=== PATIENT | female | born 1940 | race Caucasian/White ===

== ENCOUNTER 2016-07-09 09:00 | Day surgery (SDC) | payer MEDICARE, OTHER ==
--- NOTE | ~2016-07-09 | EGD ---
EGD REPORT [facility] [address] [id number] NAME: TASNEEM SHORT : 36 STATUS : REG [facility] PAT#: [id number] AGE: 75 ADM/REG DATE : 07/09/16 MR#: [id number] REPORT SERV DATE: 07/09/16 DICTATED BY: DANIEL VAIL DATE: 07/09/16 REPORT STATUS : Draft TRANSCRIBED BY: [facility] DATE: 07/09/16 [facility] Center Patient Name: Tasneem Short Date of : 1940 Attending MD: DANIEL VAIL MD Procedure Date No Time: 07/09/2016 Procedure: Colonoscopy Indications: High risk colon cancer surveillance: Personal history of colonic polyps Referring MD: ANNETTE MEREDITH Medicines: Propofol per Anesthesia Complications: No immediate complications. Procedure: Pre-Anesthesia Assessment: - ASA Grade Assessment: III - A patient with severe systemic disease. After I obtained informed consent, the scope was passed under direct vision. Throughout the procedure, the patient's blood pressure, pulse, and oxygen saturations were monitored continuously. The CF [id number] was introduced through the anus and advanced to the cecum, identified by appendiceal orifice and ileocecal valve. The ileocecal valve and appendiceal orifice were photographed. The entire colon was examined. The colonoscopy was performed without difficulty. The patient tolerated the procedure well. The quality of the bowel preparation was good. Findings: The perianal and digital rectal examinations were normal. A sessile polyp was found in the rectum. The polyp was 6 mm in size. The polyp was removed with a hot snare. Resection and retrieval were complete. Multiple small and large-mouthed diverticula were found in the entire colon. Internal hemorrhoids were found during retroflexion and were Grade I (internal hemorrhoids that do not prolapse). The rest of the colon was normal. Impression: - One 6 mm polyp in the rectum. Resected and retrieved. - Diverticulosis in the entire examined colon. - Internal hemorrhoids. Recommendation: - Discharge patient to home (ambulatory). - Repeat colonoscopy in 5 years for surveillance. EGD REPORT [address] [id number] NAME: TASNEEM SHORT : [birth year] STATUS : REG [facility]#: [id number] AGE: 75 ADM/REG DATE : 07/09/16 MR#: [id number] REPORT SERV DATE: 07/09/16 DICTATED BY: DANIEL VAIL. DATE: 07/09/16 REPORT STATUS : Draft TRANSCRIBED BY: [employer] DATE: 07/09/16 Procedure Code(s): --- Professional --- [address], Colonoscopy, flexible, proximal to splenic flexure; with removal of tumor(s), polyp(s), or other lesion(s) by snare technique Diagnosis Code(s): --- Professional --- K62.1, Rectal polyp K64.0, First degree hemorrhoids K57.30, Diverticulosis of large intestine without perforation or abscess without bleeding Z86.010, Personal history of colonic polyps CPT copyright 2013 [employer] [place] [employer] [employer]. All rights reserved. The codes documented in this report are preliminary and upon women's lacrosse coach review may be revised to meet current compliance requirements. Daniel Vail MD DANIEL VAIL MD 07/09/2016 10:30 AM This report has been signed electronically. Number of Addenda: 0 Note Initiated On: 07/09/2016 10:08 AM Scope Withdrawal Time 0 hours 8 minutes 56 seconds [id number] [id number]
[~2016-07-09 09:00] MED LIST: ACET500CAP PO; ALKA-SELTZER O1 EACH PO; BEN25 PO; CLARIT10 PO; KLONO5 PO; PRILO PO; PRILOSEC OTC20 MG PO; PROBIOTIC PO; PROTONIX PO; TYLENOL EXTRA STREN PO; ZOCOR20 PO
== END 2016-07-09 23:59 | disposition home or self-care (01) ==
LOC: DMU 09:00
PROVIDERS: Internal Medicine Gastroenterology
PROC: 0DBP8ZX Excision of Rectum, Via Natural or Artificial Opening Endoscopic, Diagnostic (ICD-10-PCS; principal; 2016-07-09 10:00)
DX: Z12.11 Encounter for screening for malignant neoplasm of colon (principal); D12.8 Benign neoplasm of rectum; K64.0 First degree hemorrhoids; K57.30 Diverticulosis of large intestine without perforation or abscess without bleeding; E78.5 Hyperlipidemia, unspecified; M19.90 Unspecified osteoarthritis, unspecified site; E83.119 Hemochromatosis, unspecified; I10 Essential (primary) hypertension; M85.80 Other specified disorders of bone density and structure, unspecified site; F41.9 Anxiety disorder, unspecified; J43.9 Emphysema, unspecified; K21.9 Gastro-esophageal reflux disease without esophagitis; I34.1 Nonrheumatic mitral (valve) prolapse; F17.210 Nicotine dependence, cigarettes, uncomplicated; Z86.010 Personal history of colon polyps; Z88.1 Allergy status to other antibiotic agents; Z88.0 Allergy status to penicillin; Z88.2 Allergy status to sulfonamides; Z88.8 Allergy status to other drugs, medicaments and biological substances; Z90.710 Acquired absence of both cervix and uterus; Z98.890 Other specified postprocedural states
CPT/HCPCS: 88305